=== PATIENT | male | born 1980 ===

== ENCOUNTER 2017-12-23 10:19 | Observation (INO) ==
--- NOTE | 2017-12-23 10:54 | ERNOTE ---
Dizziness ER Record Date of Service: 12/23/17 Presenting Symptoms: dizziness, weakness, near-fainting Time Seen by Provider: 12/23/17 10:41 Source: patient Exam Limitations: no limitations Immunizations: IMMUNIZATION HX Immunizations Up to Date Yes History of Influenza Vaccine No Hx Pneumococcal Vaccination No Allergies/Adverse Reactions: Allergies Allergy/AdvReac Type Severity Reaction Status Date / Time cefaclor [From Ceclor] Allergy Mild Hives Verified 12/23/17 10:32 Home Medications: HOME MEDICATIONS Aripiprazole [Abilify] 15 mg PO DAILY 12/23/17 [Last Taken 12/23/17] Citalopram Hydrobromide [Celexa] 20 mg PO DAILY 12/23/17 [Last Taken 12/23/17] Meloxicam 12/23/17 [Last Taken 12/23/17] Pantoprazole Sodium [Protonix] 40 mg PO DAILY 12/23/17 [Last Taken 12/23/17] Trileptal 12/23/17 [Last Taken 12/22/17] clonazePAM [Klonopin] 1 mg PO HS 12/23/17 [Last Taken 12/22/17] - History of Present Illness Narrative: Patient states he was working in an enclosed garage this AM with a vehicle running and no exhaust fan. Shortly thereafter he started feeling dizzy, lightheaded, SOB. States he feels as if he might pass out. Denies any CP or abdominal pain at this time. Date (Duration): 12/23/17 Time (Timing): 09:00 Timing and Duration: sudden onset, still present Episodes lasting:: Continues Noted on awakening:: No Severity: max: moderate Severity: currently: moderate Associated Symptoms: Present: headache, light headedness, sense of confusion Decreased ability to stand/walk:: Present: weak, off balance Usually:: Present: walks w/o assistance Modifying Factors - (Improves): Reports: other - lying down Modifying Factors - (Worsens): Reports: nothing Review of Systems - Review of Systems Constitutional: Present: See HPI, weakness, decreased activity level EYE: Present: no symptoms reported ENT: Present: no symptoms reported Respiratory: Present: shortness of breath Cardiology: Present: no symptoms reported Gastrointestinal/Abdominal: Present: no symptoms reported Neurological: Present: headache, dizziness/light-headedness, other - Near syncope Endocrine: Present: no symptoms reported Hematologic/Lymphatic: Present: no symptoms reported Psych: Present: no symptoms reported Social History: Preferred Language Irish Do you have any yarsanism or No cultural preference? Smoking Status Never smoker Have you smoked in the past 12 No months Do you dip or chew tobacco No Alcohol Use none Drug Use none Physical Exam - Physical Exam General Appearance: Present: wd/wn, alert, other - appears very sleepy Head Exam: Present: normal inspection, no evidence of injury Eye Exam: Normal inspection: bilateral, PERRL: bilateral, EOMI: bilateral Ears, Nose, Throat: Present: normal ENT inspection, normal pharynx Neck: Present: normal inspection, nontender Respiratory: Present: normal breath sounds, lungs clear, decreased breath sounds Cardiovascular/Chest: Present: regular rate, rhythm, no murmur, normal peripheral pulses Peripheral Pulses: N=norm/S=strong/W=weak/B=bound/A=absent: Radial (R): Normal, Radial (L): Normal Gastrointestinal/Abdominal: Present: normal bowel sounds, nontender, nondistended, soft, no organomegaly Extremity Exam: Present: normal inspection, normal range of motion, other - 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 Skin Exam: Present: normal color, warm/dry ED Progress - Results and Orders Patient's Lab Results:: I have reviewed the patient's lab results. - Vital Signs Patient's Vital Signs:: I have reviewed the patient's vital signs. Vital Signs: Vital Signs 12/23/17 10:24 12/23/17 10:47 Temperature 36.1 C 36.1 C Pulse Rate 87 82 Respiratory Rate 18 14 Blood Pressure 160/75 H 123/63 O2 Sat by Pulse Oximetry 95 96 - EKG EKG read: Reviewed by me - No St elevation or depression - X-Ray X-Ray #1 X-Ray: chest - No acute findings. - Progress/Reassessment Chief Complaint: Dizziness Progress:: Improved - Transfer of Care Additional Notes: Discussed patient with Dr. Rodriguez who will accept observation for high flow O2 and monitoring. Departure Clinical Impression: Carbon monoxide poisoning from motor vehicle exhaust Qualifiers: Encounter type: initial encounter Injury intent: accidental or unintentional Qualified Code(s): T58.01XA - Toxic effect of carbon monoxide from motor vehicle exhaust, accidental (unintentional), initial encounter - Departure Disposition: Still a patient Condition: Stable
[2017-12-23 11:13] LABS: Methemoglobin % 0.3 % (0.41-1.15)
[2017-12-23 11:15] LABS: Carboxyhemoglobin % 33.7 % (0.5-1.5)
[2017-12-23 11:20] LABS: Hematocrit 44.2 % (42.0-52.0); Hemoglobin 15.2 gm/dL (13.5-18.0); Mean Cell Volume 85.2 fl (78-100); Mean Corpuscular Hemoglobin 29.3 pg (27-31); Mean Corpuscular Hgb Conc 34.4 g/dl (32-36); Mean Platelet Volume 9.3 fl (8-11.3); Neutrophil # 3.3 K/mm3 (1.3-6.0); Platelet Count 277 K/mm3 (150-450); Red Blood Count 5.19 M/mm3 (4.7-6.0); Red Cell Distribution Width 13.3 % (11.5-14.0); White Blood Count 5.3 K/mm3 (4.0-10.5)
[2017-12-23 11:32] LABS: ALT 66 U/L (19-67); AST 27 U/L (0-48); Albumin * 4.1 gm/dl (3.4-5.0); Alkaline Phosphatase * 89 U/L (50-170); Anion Gap 11.2 mmol/L (6.8-13.8); BUN/Creatinine Ratio 13.6 (9.0-21.6); Bilirubin, Total 0.4 mg/dL (0.0-1.1); Blood Urea Nitrogen 14 mg/dL (6-23); Ca. Corrected For Albumin 8.5 mg/dL (8.4-10.2); Calcium * 8.9 mg/dL (7.9-10.9); Carbon Dioxide 27.6 mmol/L (24-32.6); Chloride 103 mmol/L (97-106); Glucose * 111 mg/dL (70-110); Potassium 3.8 mmol/L (3.4-4.6); Sodium 138 mmol/L (132-142); Total Protein 7.4 gm/dL (6.2-8.2)
[2017-12-23 11:33] LABS: Troponin I Less than 0.017 ng/mL (0.00-0.10)
[2017-12-23] MEDS: NORMAL SALINE 1,000 ML IV PRN ×2 (12:00→20:07)
--- NOTE | 2017-12-23 13:46 | HP ---
Chief Complaint - Chief Complaint Date of Service: 12/23/17 Time of Service: 13:53 Chief Complaint: dizziness History of Present Illness: Jovon Beverly, is a 37-year-old white male, with previous medical history of anxiety and depression, gastroesophageal reflux disease, who was admitted on 03/2018 because of dizziness. The patient works in [employer] . He was working on a car with the garage door closd. He forgot to put on the exhaust ventilator. He was working with the car with the engine running on and off for about 3 hours. He started feeling dizzy and when he stood up he was feeling lightheaded. His friend told him to go to the emergency room. he denied N/V, chest pain or LOC, confusion. He did have LYONS which is going away now. His work up in the ER was basically WNL except for a carboxyhemoglobin level of 33.7 %. He was put on a high flow O2 with a NRB mask and admitted for observation. 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 Smoking Status Never smoker Have you smoked in the past 12 No months Do you dip or chew tobacco No Alcohol Use none Drug Use none Review Of Systems (GEN) - Review of Systems Generalized/Overall Review: Absent: Weakness, Chills, Fever EENTM: Absent: Blurred Vision Respiratory: Absent: Cough, Shortness of Breath, Orthopnea, Wheezing Cardiac: Absent: Chest Pain, Edema, Palpitations Abdominal: Absent: Nausea, Vomiting Genitourinary: Absent: Urgency, Frequency Musculoskeletal: Absent: Joint Pain Neurological: Present: Headache, Other - dizziness, lightheadedness Immunizations: IMMUNIZATION HX Immunizations Up to Date Yes History of Influenza Vaccine No Hx Pneumococcal Vaccination No Allergies/Adverse Reactions: Allergies Allergy/AdvReac Type Severity Reaction Status Date / Time cefaclor [From [facility]] Allergy Mild Hives Verified 12/23/17 12:29 adhesive tape AdvReac Mild Itching Verified 12/23/17 12:47 Home Medications: HOME MEDICATIONS Aripiprazole [Abilify] 15 mg PO DAILY 12/23/17 [Last Taken 12/23/17] Citalopram Hydrobromide [Celexa] 20 mg PO DAILY 12/23/17 [Last Taken 12/23/17] Meloxicam 12/23/17 [Last Taken 12/23/17] OXcarbazepine [Trileptal] 600 mg PO HS 12/23/17 [Last Taken 12/22/17] Pantoprazole Sodium [Protonix] 40 mg PO DAILY 12/23/17 [Last Taken 12/23/17] clonazePAM [Klonopin] 1 mg PO HS 12/23/17 [Last Taken 12/22/17] Exam - Exam Vital Signs: Vital Signs - Last Taken Temp 36.2 C 12/23/17 13:01 Pulse 75 12/23/17 13:01 Resp 18 12/23/17 13:01 BP 151/89 H 12/23/17 13:01 Pulse Ox 100 12/23/17 13:01 Constitutional: Present: Alert, Oriented x3, Cooperative, Young, Obese ENT Exam: Present: hearing grossly normal Eye Exam: bilateral eye: normal inspection, PERRL, EOMI Neck: Present: supple Respiratory: Present: normal breath sounds, No rales, No wheezing Cardiovascular/Chest: Present: regular rate, rhythm, no JVD, no murmur Abdomen: Present: Normal bowel sounds, soft, nontender, nondistended Extremity: Present: no pedal edema, no calf tenderness Neurologic: Present: banker mason II-XII nml as tested, oriented x 3. Absent: motor weakness, sensory deficit Diagnostic Studies: Abnormal Lab Results 12/23/17 12/23/17 Range/Units 11:08 11:09 pO2 174.3 H (83.0-108.0) mmHg Total CO2 25.2 H (19.0-24.0) mmol/L ABG O2 Sat (Measured) 99.2 H (94.0-98.0) % Carboxyhemoglobin 33.7 H (0.5-1.5) % Methemoglobin 0.3 L (0.41-1.15) % Random Glucose 111 H (70-110) mg/dL Laboratory Results WBC 5.3 K/mm3 (4.0-10.5) 12/23/17 11:09 RBC 5.19 M/mm3 (4.7-6.0) 12/23/17 11:09 Hgb 15.2 gm/dL (13.5-18.0) 12/23/17 11:09 Hct 44.2 % (42.0-52.0) 12/23/17 11:09 MCV 85.2 fl (78-100) 12/23/17 11:09 MCH 29.3 pg (27-31) 12/23/17 11:09 MCHC 34.4 g/dl (32-36) 12/23/17 11:09 RDW 13.3 % (11.5-14.0) 12/23/17 11:09 Plt Count 277 K/mm3 (150-450) 12/23/17 11:09 MPV 9.3 fl (8-11.3) 12/23/17 11:09 Immature Gran % (Auto) 0.40 % (0.001-0.429) 12/23/17 11:09 Immature Gran # (Auto) 0.02 K/mm3 (0.000-0.0310) 12/23/17 11:09 Neutrophils % 62.0 % (42-75.0) 12/23/17 11:09 Lymphocytes % 30.3 % (20-51) 12/23/17 11:09 Monocytes % 6.0 % (0.0-9) 12/23/17 11:09 Eosinophils % 0.7 % (0.0-3.0) 12/23/17 11:09 Basophils % 0.6 % (0.0-1.0) 12/23/17 11:09 Nucleated RBC % 0.0 k/mm3 (0-1) 12/23/17 11:09 Neutrophils # 3.3 K/mm3 (1.3-6.0) 12/23/17 11:09 Lymphocytes # 1.62 k/mm3 (1.5-3.5) 12/23/17 11:09 Monocytes # 0.3 k/mm3 (0.0-1.0) 12/23/17 11:09 Eosinophils # 0.0 k/mm3 (0.0-0.7) 12/23/17 11:09 Absolute Basophils 0.0 k/mm3 (0.0-0.1) 12/23/17 11:09 pCO2 39.2 mmHg (35.0-48.0) 12/23/17 11:08 pO2 174.3 mmHg (83.0-108.0) H 12/23/17 11:08 HCO3 24.0 mmol/L (21.0-28.0) 12/23/17 11:08 Total CO2 25.2 mmol/L (19.0-24.0) H 12/23/17 11:08 Base Excess -0.5 mmol/L (-2.0-3.0) 12/23/17 11:08 ABG pH 7.41 (7.35-7.45) 12/23/17 11:08 ABG O2 Sat (Measured) 99.2 % (94.0-98.0) H 12/23/17 11:08 Carboxyhemoglobin 33.7 % (0.5-1.5) H 12/23/17 11:08 Methemoglobin 0.3 % (0.41-1.15) L 12/23/17 11:08 Sodium 138 mmol/L (132-142) 12/23/17 11:09 Plasma Sodium 138 mmol/L (130-142) 12/23/17 11:09 Potassium 3.8 mmol/L (3.4-4.6) 12/23/17 11:09 Chloride 103 mmol/L (97-106) 12/23/17 11:09 Carbon Dioxide 27.6 mmol/L (24-32.6) 12/23/17 11:09 Anion Gap 11.2 mmol/L (6.8-13.8) 12/23/17 11:09 BUN 14 mg/dL (6-23) 12/23/17 11:09 Creatinine 1.03 mg/dL (0.4-1.4) 12/23/17 11:09 Est GFR (Non-Af Amer) 85 mL/min (60-130) 12/23/17 11:09 BUN/Creatinine Ratio 13.6 (9.0-21.6) 12/23/17 11:09 Random Glucose 111 mg/dL (70-110) H 12/23/17 11:09 Lactic Acid, Venous 1.1 mmol/L (0.4-2.0) 12/23/17 11:09 Calcium 8.9 mg/dL (7.9-10.9) 12/23/17 11:09 Calcium Adj for Albumin 8.5 mg/dL (8.4-10.2) 12/23/17 11:09 Total Bilirubin 0.4 mg/dL (0.0-1.1) 12/23/17 11:09 AST 27 U/L (0-48) 12/23/17 11:09 ALT 66 U/L (19-67) 12/23/17 11:09 Alkaline Phosphatase 89 U/L (50-170) 12/23/17 11:09 Troponin I Less than 0.017 ng/mL (0.00-0.10) 12/23/17 11:09 Total Protein 7.4 gm/dL (6.2-8.2) 12/23/17 11:09 Albumin 4.1 gm/dl (3.4-5.0) 12/23/17 11:09 Assessment/Plan - Assessment/Plan (1) Carbon monoxide poisoning from motor vehicle exhaust Assessment: he is asymptomatic now. will continue with is high flow O2. will defer Hyperbaric Oxygen chamber as he is asymptomatic. will continue to monitor for delayed neurologic and cardiac complications. will try to get in touch poison control to see if they have any other recommendation. will recheck his level again. Problem: Acute Qualifiers: Encounter type: initial encounter Injury intent: accidental or unintentional Qualified Code(s): T58.01XA - Toxic effect of carbon monoxide from motor vehicle exhaust, accidental (unintentional), initial encounter (2) Anxiety and depression Problem: Acute (3) GERD (gastroesophageal reflux disease) Problem: Acute
[2017-12-23 16:16] LABS: Carboxyhemoglobin % 3.3 % (0.5-1.5); Methemoglobin % 0.4 % (0.41-1.15)
[2017-12-24] MEDS: NORMAL SALINE 1,000 ML IV PRN (04:10)
[2017-12-24 05:27] LABS: Methemoglobin % 0.3 % (0.41-1.15)
--- NOTE | 2017-12-24 08:40 | DS ---
(1) Carbon monoxide poisoning from motor vehicle exhaust Problem: Resolved Qualifiers: Encounter type: initial encounter Injury intent: accidental or unintentional Qualified Code(s): T58.01XA - Toxic effect of carbon monoxide from motor vehicle exhaust, accidental (unintentional), initial encounter (2) Anxiety and depression Problem: Chronic (3) GERD (gastroesophageal reflux disease) Problem: Chronic Description of Stay: Jovon Beverly, is a 37-year-old white male, with previous medical history of anxiety and depression, gastroesophageal reflux disease, who was admitted on 03/2018 because of dizziness. The patient works in [employer] . He was working on a car with the garage door closed. He forgot to put on the exhaust ventilator. He was working with the car with the engine running on and off for about 3 hours. He started feeling dizzy and when he stood up he was feeling lightheaded. His friend told him to go to the emergency room. He denied N/V, chest pain or LOC, confusion. He did have LYONS which resolved. His work up in the ER was basically WNL except for a carboxyhemoglobin level of 33.7 %. He was put on a high flow O2 with a NRB mask and admitted for observation. Poison control was contacted. His CarboxyHb this morning is 1 and he is exygenatin in the mid 90's on RA and asymptomatic. He is stable to be discharged today. he was told to watch for possible delayed neurological sequelae like cognitive impairments, personality changes, movement disorders etc. Since he did not passed out , this is unlikely. he was also tpld to make sure he works with the cars in an open space or if in a closed space to have good exhaust ventilation. Procedures Performed: none Results and Findings: Lab Pending Results 12/23/17 11:08: pCO2 39.2, pO2 174.3 H, HCO3 24.0, Total CO2 25.2 H, Base Excess -0.5, ABG pH 7.41, ABG O2 Sat (Measured) 99.2 H, Carboxyhemoglobin 33.7 H , Methemoglobin 0.3 L 12/23/17 11:09: WBC 5.3, RBC 5.19, Hgb 15.2, Hct 44.2, MCV 85.2, MCH 29.3, MCHC 34.4, RDW 13.3, Plt Count 277, MPV 9.3, Immature Gran % (Auto) 0.40, Immature Gran # (Auto) 0.02, Neutrophils % 62.0, Lymphocytes % 30.3, Monocytes % 6.0, Eosinophils % 0.7, Basophils % 0.6, Nucleated RBC % 0.0, Neutrophils # 3.3, Lymphocytes # 1.62, Monocytes # 0.3, Eosinophils # 0.0, Absolute Basophils 0.0 12/23/17 11:09: Sodium 138, Plasma Sodium 138, Potassium 3.8, Chloride 103, Carbon Dioxide 27.6, Anion Gap 11.2, BUN 14, Creatinine 1.03, Est GFR (Non-Af Amer) 85, BUN/Creatinine Ratio 13.6, Random Glucose 111 H, Calcium 8.9, Calcium Adj for Albumin 8.5, Total Bilirubin 0.4, AST 27, ALT 66, Alkaline Phosphatase 89, Troponin I Less than 0.017, Total Protein 7.4, Albumin 4.1 12/23/17 11:09: Lactic Acid, Venous 1.1 12/23/17 16:08: pCO2 33.9 L, pO2 374.0 H, HCO3 21.5, Total CO2 22.6, Base Excess -2.2 L, ABG pH 7.42, ABG O2 Sat (Measured) 99.8 H 12/23/17 16:08: Carboxyhemoglobin 3.3 H, Methemoglobin 0.4 L 12/24/17 04:48: pCO2 40.7, pO2 131.9 H, HCO3 23.4, Total CO2 24.7 H, Base Excess -1.6, ABG pH 7.38, ABG O2 Sat (Measured) 98.6 H 12/24/17 05:25: Carboxyhemoglobin 1.0, Methemoglobin 0.3 L Discharge Location: Home Disposition: Home self-care Condition: Stable Discharge Activity: Activity as tolerated Discharge Diet: General/regular food Additional Patient Instructions (free text): Follow up with his PCP in 1 week. Complete Home Medications List: Complete Home Medication List: Aripiprazole [Abilify] 15 mg PO DAILY 12/23/17 Citalopram Hydrobromide [Celexa] 20 mg PO DAILY 12/23/17 Meloxicam 12/23/17 OXcarbazepine [Trileptal] 600 mg PO HS 12/23/17 Pantoprazole Sodium [Protonix] 40 mg PO DAILY 12/23/17 clonazePAM [Klonopin] 1 mg PO HS 12/23/17
[2017-12-24 09:43] VITALS: BP 115/53
== END 2017-12-24 09:45 | disposition home or self-care (01) ==
LOC: ER 10:19 → MS 10:19
PROVIDERS: ADMIT Internal Medicine; ATTEND Internal Medicine
DX: T58.01XA Toxic effect of carbon monoxide from motor vehicle exhaust, accidental (unintentional), initial encounter; Y92.59 Other trade areas as the place of occurrence of the external cause; K21.9 Gastro-esophageal reflux disease without esophagitis; Y99.0 Civilian activity done for income or pay; F41.8 Other specified anxiety disorders; R06.02 Shortness of breath
CPT/HCPCS: 36415; 36600; 71020; 71046; 80053; 82375; 82803; 83605; 84484; 85025; 93005; 94660; 96360; 96361; 99284; G0378